=== PATIENT | female | born 1945 | race Caucasian/White ===

== ENCOUNTER 2018-05-12 06:42 | Observation (INO) | payer MEDICARE, OTHER ==
[2018-05-12] MEDS ORDERED: ACETAMINOPHEN 325 MG TABLET PO ONE (06:48)
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
[2018-05-12] MEDS ORDERED: ONDANSETRON HCL INJ/PF 4 MG/2 ML SDV IV ONE (07:25)
[2018-05-12] MEDS ORDERED: MORPHINE SULFATE 10 MG/ML INJ IV ONE (07:25)
[2018-05-12 08:09] LABS: ABSOLUTE BASOPHILS # (AUTO) 0.1 10^3/uL (0.0-0.2); ABSOLUTE EOSINOPHILS # (AUTO) 0.4 10^3/uL (0.0-0.6); ABSOLUTE LYMPHOCYTES (AUTO) 1.7 10^3/uL (0.5-4.7); ABSOLUTE MONOCYTES (AUTO) 0.6 10^3/uL (0.1-1.4); ABSOLUTE NEUT (AUTO) 7.1 10^3/uL (1.7-8.2); BASOPHILS % (AUTO) 0.9 % (0-2); EOSINOPHILS % (AUTO) 3.9 % (0-6); HEMATOCRIT 39.8 % (36.0-47.0); HEMOGLOBIN 13.7 g/dL (12.0-15.5); LYMPHOCYTES % (AUTO) 17.4 % (13-45); MEAN CORPUSCULAR HGB CONC 34.4 g/dL (32.0-36.0); MEAN CORPUSCULAR VOLUME 87 fl (80-97); MONOCYTES % (AUTO) 6.5 % (3-13); PLATELET COUNT 251 10^3/uL (150-450); RED BLOOD COUNT 4.56 10^6/uL (3.72-5.28); RED CELL DISTRIBUTION WIDTH 13.2 % (11.5-14.0); SEGMENTED NEUTROPHILS % (AUTO) 71.3 % (42-78); TOTAL CELLS COUNTED % (AUTO) 100 %; WHITE BLOOD COUNT 9.9 10^3/uL (4.0-10.5)
[2018-05-12] MEDS ORDERED: MORPHINE SULFATE 10 MG/ML INJ ONE (08:09)
--- NOTE | 2018-05-12 08:20 | RADIOLOGY REPORT (SQ) ---
EXAM DESCRIPTION: ANKLE LEFT COMPLETE COMPLETED DATE/TIME: 05/12/2018 7:26 am REASON FOR STUDY: injury COMPARISON: None. NUMBER OF VIEWS: Three views. TECHNIQUE: AP, lateral, and oblique radiographic images acquired of the left ankle. LIMITATIONS: None. FINDINGS: MINERALIZATION: Normal. BONES: Comminuted fractures of the distal tibia and fibula with disruption of the tibiotalar joint. JOINTS: No effusions. SOFT TISSUES: No soft tissue swelling. No foreign body. OTHER: No other significant finding. IMPRESSION: COMMINUTED FRACTURE DISLOCATION. TECHNICAL DOCUMENTATION: JOB ID: [id number] [employer]- All Rights Reserved Reading location - IP/workstation name: [email or web address]
[2018-05-12 08:24] LABS: ALANINE AMINOTRANSFERASE 21 U/L (9-52); ALBUMIN 4.3 g/dL (3.5-5.0); ALKALINE PHOSPHATASE 94 U/L (38-126); ANION GAP 8 (5-19); ASPARTATE AMINO TRANSFERASE 29 U/L (14-36); BILIRUBIN,DIRECT 0.2 mg/dL (0.0-0.4); BILIRUBIN,TOTAL 0.5 mg/dL (0.2-1.3); BLOOD UREA NITROGEN 20 mg/dL (7-20); CALCIUM 10.2 mg/dL (8.4-10.2); CARBON DIOXIDE 26 mmol/L (22-30); CHLORIDE 109 mmol/L (98-107); GLUCOSE 95 mg/dL (75-110); POTASSIUM 4.6 mmol/L (3.6-5.0); SODIUM 143.1 mmol/L (137-145); TOTAL PROTEIN 7.2 g/dL (6.3-8.2)
--- NOTE | 2018-05-12 08:58 | RADIOLOGY REPORT (SQ) ---
EXAM DESCRIPTION: ANKLE LEFT AP/LATERAL COMPLETED DATE/TIME: 05/12/2018 8:51 am REASON FOR STUDY: Post reduction trimalleolar fracture COMPARISON: 05/12/2018. NUMBER OF VIEWS: Two views. TECHNIQUE: AP and lateral radiographic images acquired of the left ankle. LIMITATIONS: None. FINDINGS: Improved fracture alignment following closed reduction. IMPRESSION: IMPROVED FRACTURE ALIGNMENT FOLLOWING CLOSED REDUCTION. TECHNICAL DOCUMENTATION: JOB ID: [id number] [employer]- All Rights Reserved Reading location - IP/workstation name: [email or web address]
[2018-05-12 09:46] LABS: AMORPHOUS SEDIMENT,URINE TRACE /HPF; APPEARANCE,URINE SLIGHTLY-CLOUDY; BILIRUBIN,URINE NEGATIVE (NEGATIVE); COLOR,URINE YELLOW; GLUCOSE, URINE NEGATIVE (NEGATIVE); KETONES,URINE NEGATIVE (NEGATIVE); LEUKOCYTE ESTERASE,URINE TRACE (NEGATIVE); NITRITE,URINE NEGATIVE (NEGATIVE); PROTEIN,URINE NEGATIVE (NEGATIVE); URINE SPECIFIC GRAVITY 1.013; UROBILINOGEN,URINE NEGATIVE mg/dL (<2.0)
--- NOTE | 2018-05-12 09:57 | RADIOLOGY REPORT (SQ) ---
EXAM DESCRIPTION: CHEST SINGLE VIEW COMPLETED DATE/TIME: 05/12/2018 9:37 am REASON FOR STUDY: Pre-op COMPARISON: None. EXAM PARAMETERS: NUMBER OF VIEWS: One view. TECHNIQUE: Single frontal radiographic view of the chest acquired. RADIATION DOSE: NA LIMITATIONS: None. FINDINGS: LUNGS AND PLEURA: No opacities, masses or pneumothorax. No pleural effusion. MEDIASTINUM AND HILAR STRUCTURES: No masses. Contour normal. HEART AND VASCULAR STRUCTURES: Heart normal in size. Normal vasculature. BONES: No acute findings. HARDWARE: None in the chest. OTHER: No other significant finding. IMPRESSION: NO ACUTE RADIOGRAPHIC FINDING IN THE CHEST. TECHNICAL DOCUMENTATION: JOB ID: [id number] [employer]- All Rights Reserved Reading location - IP/workstation name: [email or web address]
[2018-05-12] MEDS ORDERED: GLUCAGON,HUMAN RECOMB 1 MG INJ SUBCUT PRN (12:34)
[2018-05-12] MEDS ORDERED: DEXTROSE 50%-WATER 25 GM/50 ML DISP.SYRIN IV PRN ×2 (12:34)
[2018-05-12] MEDS ORDERED: DEXTROSE 40% GEL 15 GM TUBE PO PRN ×2 (12:34)
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
[2018-05-12] MEDS ORDERED: MORPHINE SULFATE 10 MG/ML INJ IV PRN (12:38)
[2018-05-12] MEDS ORDERED: ONDANSETRON HCL INJ/PF 4 MG/2 ML SDV IV PRN (12:38)
--- NOTE | 2018-05-12 14:33 | EKG REPORT ---
SEVERITY:- NORMAL ECG - SINUS RHYTHM : Confirmed by: Catherine Amezquita MD 12-May-2018 14:32:47
--- NOTE | 2018-05-12 18:03 | PDOC CONSULTATION ---
Consultation Consult Date: 05/12/18 Attending physician:: BRUCE JARA Consult reason:: HTN, HLD, HYPOTHYROIDISM MGMT History of Present Illness Admission Date/PCP: 05/12/18 09:56 Patient complains of: L ANKLE PAIN History of Present Illness: ANGELITO ORTIZ is a 72 year old female who fell while walking down stairs. Sustained a bimalleolar ankle fracture dislocation. Reduced in the ED by Dr. Mojica. Patient is admitted to Ortho, hospitalist is consulted for management of HTN, HLD and hypothyroidism. Patient states she is compliant with all of her medications. She follows up with her PCP regularly. Stress test and carotid duplex completed 1 year ago by value engineer after patient was complaining of diaphoresis and exhaustion following minimal exertion. Unclear about stress test results but patient stated she underwent cardiac catheterization in and results were normal. No further cardiac workup needed. Past Medical History Cardiac Medical History: Reports: Hyperlipidema, Hypertension Endocrine Medical History: Reports: Hypothyroidism Past Surgical History Past Surgical History: Reports: Appendectomy, Hysterectomy, Other - Right distal forearm ORIF Social History Information Source: Patient Lives with: Family Smoking Status: Never Smoker Frequency of Alcohol Use: None Hx Recreational Drug Use: No Drugs: None Hx Prescription Drug Abuse: No - Advance Directive Resuscitation Status: Full Code Family History Family History: Reviewed & Not Pertinent Parental Family History Reviewed: No Children Family History Reviewed: NA Sibling(s) Family History Reviewed.: NA Medication/Allergy Home Medications: Alendronate Sodium [Fosamax 70 mg Tablet] 70 mg PO TORRES@1000 05/12/18 Atorvastatin Calcium [Lipitor 20 mg Tablet] 20 mg PO QHS 05/12/18 Levothyroxine Sodium [Synthroid 0.112 mg Tablet] 0.112 mg PO Q6AM 05/12/18 Allergies/Adverse Reactions: No Known Allergies Allergy (Unverified 05/12/18 08:47) Review of Systems All systems: reviewed and no additional remarkable complaints except as stated Physical Exam Vital Signs: Temp Pulse Resp BP Pulse Ox 97.7 F 17 108/50 L 99 05/12/18 14:14 05/12/18 16:30 05/12/18 16:30 05/12/18 16:30 General appearance: PRESENT: no acute distress, well-developed, well-nourished Head exam: PRESENT: atraumatic, normocephalic Eye exam: PRESENT: conjunctiva pink, EOMI, PERRLA. ABSENT: scleral icterus Ear exam: PRESENT: normal external ear exam Mouth exam: PRESENT: moist, tongue midline Neck exam: ABSENT: carotid bruit, JVD, lymphadenopathy, thyromegaly Respiratory exam: PRESENT: clear to auscultation kristin. ABSENT: rales, rhonchi, wheezes Cardiovascular exam: PRESENT: RRR. ABSENT: diastolic murmur, rubs, systolic murmur Pulses: PRESENT: normal dorsalis pedis pul Vascular exam: PRESENT: normal capillary refill GI/Abdominal exam: PRESENT: normal bowel sounds, soft. ABSENT: distended, guarding, mass, organolmegaly, rebound, tenderness Rectal exam: PRESENT: deferred Extremities exam: ABSENT: calf tenderness, clubbing, full ROM - L ANKLE, pedal edema Musculoskeletal exam: PRESENT: ambulatory - WITH ASSISTANCE, deformity - LLE. ABSENT: full ROM - L ANKLE Neurological exam: PRESENT: alert, awake, oriented to person, oriented to place , oriented to time, oriented to situation Psychiatric exam: PRESENT: appropriate affect, normal mood Skin exam: PRESENT: dry, intact, warm. ABSENT: cyanosis, rash Results Impressions: Ankle X-Ray 05/12/18 08:34 IMPRESSION: IMPROVED FRACTURE ALIGNMENT FOLLOWING CLOSED REDUCTION. Chest X-Ray 05/12/18 09:14 IMPRESSION: NO ACUTE RADIOGRAPHIC FINDING IN THE CHEST. Status: Imported from PACS Assessment & Plan - Diagnosis (1) Displaced trimalleolar fracture of left ankle Qualifiers: Encounter type: initial encounter Fracture type: closed Qualified Code(s) : S82.852A - Displaced trimalleolar fracture of left lower leg, initial encounter for closed fracture Is this a current diagnosis for this admission?: Yes Plan: Plan per Ortho (2) HTN (hypertension) Qualifiers: Hypertension type: essential hypertension Qualified Code(s): I10 - Essential (primary) hypertension Is this a current diagnosis for this admission?: Yes Plan: History of HTN Continue home dose [place] (3) HLD (hyperlipidemia) Is this a current diagnosis for this admission?: Yes Plan: History of HLD Continue home dose lipitor check lipid panel in AM (4) Hypothyroid Is this a current diagnosis for this admission?: Yes Plan: History of hypothyroidism Continue home dose synthroid check TSH in AM (5) Osteopenia Is this a current diagnosis for this admission?: Yes Plan: History of osteopenia Continue home dose fosamax - Time Time Spent: 30 to 50 Minutes Medications reviewed and adjusted accordingly: Yes Anticipated discharge: Home Within: within 24 hours - Inpatient Certification Based on my medical assessment, after consideration of the patient's comorbidities, presenting symptoms, or acuity I expect that the services needed warrant INPATIENT care.: Yes I certify that my determination is in accordance with my understanding of Medicare's requirements for reasonable and necessary INPATIENT services [42 CFR 412.3e].: Yes Medical Necessity: Need for Surgery
[2018-05-12] MEDS: HYDROCODONE/ACETAMINOPHEN 5-325 MG TABLET PO PRN (20:20)
[2018-05-12] MEDS ORDERED: [UNRECOGNIZED DRUG - OTHER] IV ONE (23:42)
[2018-05-12] MEDS ORDERED: CEFAZOLIN IV ONE (23:42)
[2018-05-12] MEDS: CEFAZOLIN 2 GM/D5W RTU 2 GM/50 ML RTUPB IV SCH (23:53)
[2018-05-13] MEDS ORDERED: RINGERS SOLUTION,LACTATED 1,000 ML IV PRN ×2 (01:00→07:00)
[2018-05-13] MEDS: CEFAZOLIN 2 GM/D5W RTU 2 GM/50 ML RTUPB IV SCH ×3 (06:17→18:33)
[2018-05-13] MEDS ORDERED: CEFAZOLIN 2 GM/D5W RTU 2 GM/50 ML RTUPB IV PRN (07:00)
[2018-05-13] MEDS: HYDROCODONE/ACETAMINOPHEN 5-325 MG TABLET PO PRN (08:18)
[2018-05-13] MEDS ORDERED: ONDANSETRON HCL INJ/PF 4 MG/2 ML SDV IV PRN ×2 (13:00→15:45)
[2018-05-13 14:17] LABS: HEMATOCRIT 36.3 % (36.0-47.0); HEMOGLOBIN 12.3 g/dL (12.0-15.5); MEAN CORPUSCULAR HEMOGLOBIN 29.9 pg (27.0-33.4); MEAN CORPUSCULAR HGB CONC 33.9 g/dL (32.0-36.0); MEAN CORPUSCULAR VOLUME 88 fl (80-97); PLATELET COUNT 211 10^3/uL (150-450); RED BLOOD COUNT 4.13 10^6/uL (3.72-5.28); RED CELL DISTRIBUTION WIDTH 12.9 % (11.5-14.0); WHITE BLOOD COUNT 8.8 10^3/uL (4.0-10.5)
[2018-05-13 14:25] LABS: INTERNATIONAL RATION (INR) 0.99; PROTHROMBIN TIME 13.6 SEC (11.4-15.4)
[2018-05-13] MEDS ORDERED: MIDAZOLAM 2 MG/2 ML INJ ONE (14:25)
[2018-05-13] MEDS ORDERED: ONDANSETRON HCL INJ/PF 4 MG/2 ML SDV ONE (14:25)
[2018-05-13] MEDS ORDERED: FENTANYL CITRATE INJ/PF 100 MCG/2 ML AMPUL ONE (14:25)
[2018-05-13] MEDS ORDERED: LIDOCAINE 2% INJ-PF (20 MG/ML) 10 ML AMPUL ONE (14:25)
[2018-05-13] MEDS ORDERED: PROPOFOL INJ 200 MG/20 ML VIAL IV ONE (14:26)
[2018-05-13] MEDS ORDERED: BUPIVACAINE HCL/DEX-WATER/PF 15 MG/2 ML AMPULE ONE (14:27)
[2018-05-13 14:36] LABS: ALANINE AMINOTRANSFERASE 23 U/L (9-52); ALBUMIN 3.2 g/dL (3.5-5.0); ALKALINE PHOSPHATASE 81 U/L (38-126); ANION GAP 7 (5-19); ASPARTATE AMINO TRANSFERASE 19 U/L (14-36); BILIRUBIN,DIRECT 0.2 mg/dL (0.0-0.4); BILIRUBIN,TOTAL 0.5 mg/dL (0.2-1.3); BLOOD UREA NITROGEN 16 mg/dL (7-20); CALCIUM 8.8 mg/dL (8.4-10.2); CARBON DIOXIDE 26 mmol/L (22-30); CHLORIDE 107 mmol/L (98-107); CHOLESTEROL 136.53 mg/dL (0-200); GLUCOSE 86 mg/dL (75-110); POTASSIUM 4.3 mmol/L (3.6-5.0); SODIUM 139.6 mmol/L (137-145); TOTAL PROTEIN 5.6 g/dL (6.3-8.2); TRIGLYCERIDES 152 mg/dL (<150)
[2018-05-13 14:46] LABS: DIRECT LDL 72 mg/dL (<100)
[2018-05-13 14:48] LABS: VLDL CHOLESTEROL 30.4 mg/dL (10-31)
[2018-05-13] MEDS ORDERED: FENTANYL CITRATE INJ/PF 100 MCG/2 ML AMPUL IV PRN ×3 (15:45)
[2018-05-13] MEDS ORDERED: PROMETHAZINE HCL INJ 25 MG/1 ML VIAL IV PRN ×2 (15:45)
[2018-05-13] MEDS ORDERED: MEPERIDINE HCL/PF INJ 25 MG/1 ML DISP.SYRIN IV PRN (15:45)
[2018-05-13] MEDS ORDERED: MORPHINE SULFATE 10 MG/ML INJ IV PRN ×2 (15:45→21:19)
[2018-05-13] MEDS ORDERED: DIPHENHYDRAMINE HCL 50 MG/ML VIAL IV PRN (15:45)
--- NOTE | 2018-05-13 16:08 | Operative Report ---
Operative Report DATE OF SURGERY: 05/13/18 PREOPERATIVE DIAGNOSIS: Left bimalleolar ankle fracture OPERATION: Open reduction internal fixation left bimalleolar ankle fracture SURGEON: JACQUELINE SAVAGE ANESTHESIA: Spinal ESTIMATED BLOOD LOSS: 25 PROCEDURE: With the patient supine on the operating table left lower extremities prepped and draped in a sterile fashion. The limb was elevated for exsanguination tourniquet inflated 280 torr. A longitudinal incisions made over the distal lateral fibula and sharp dissection was carried incision down through the periosteum. The periosteum was elevated. The underlying fracture is visual visualized. Somewhat comminuted but is transverse. Is reapproximated using lobster claw clamps. A Pinch one thirds tubular stainless steel plate is applied and secured with 3 screws proximally and 4 screws distally. The fracture reduction hardware placement are assessed and felt to be acceptable. Attention was now turned to the medial malleolus. Longitudinal incisions made over the medial malleolus and sharp dissection was used carried incision through the periosteum. The periosteum was elevated. The fracture is identified. Its reduced anatomically using a dental pick. 2 pins for the Pinch 4.0 mm stainless steel cannulated screws were placed across the fracture and this is secured with 250 mm screws. The fracture reduction and the hardware placement again checked fluoroscopically and felt to be anatomic. This point the tourniquet is deflated. Hemostasis obtained with electrocautery. The wounds irrigated with bulb lavage. The closure is interrupted Vicryl followed by nylon. A sterile compressive dressing and posterior plaster splint were applied and patient's return to PACU in satisfactory condition.
[2018-05-13] MEDS ORDERED: DEXTROSE 40% GEL 15 GM TUBE X 2 PO PRN ×2 (16:19→21:16)
[2018-05-13] MEDS ORDERED: INSULIN LISPRO 100 UNIT/ML 3 ML VIAL SUBCUT PRN ×2 (16:19→21:16)
[2018-05-13] MEDS ORDERED: GLUCAGON,HUMAN RECOMB 1 MG INJ IM PRN ×2 (16:19→21:16)
[2018-05-13] MEDS ORDERED: DEXTROSE 50%-WATER SYRINGE 25 GM/50 ML DOSE IV PRN ×2 (16:19→21:16)
[2018-05-13] MEDS ORDERED: DEXTROSE 50%-WATER SYRINGE 12.5 GM/25 ML DOSE IV PRN ×2 (16:19→21:16)
[2018-05-13] MEDS ORDERED: DEXTROSE 40% GEL 15 GM TUBE PO PRN ×2 (16:19→21:16)
--- NOTE | 2018-05-13 16:49 | RADIOLOGY REPORT (SQ) ---
EXAM DESCRIPTION: ANKLE LEFT AP/LATERAL; NO CHG FLUORO COMPLETED DATE/TIME: 05/13/2018 4:23 pm REASON FOR STUDY: ORIF LT ANKLE D53.9 NUTRITIONAL ANEMIA, UNSPECIFIED E78.5 HYPERLIPIDEMIA, UNSPEC IFIED E03.8 OTHER SPECIFIED HYPOTHYROIDISM COMPARISON: None. FLUOROSCOPY TIME: 0.2 minutes Spot images saved to PACS. TECHNIQUE: Intra-operative images acquired during surgical procedure to evaluate progress. NUMBER OF IMAGES: 2 LIMITATIONS: None. FINDINGS: Fluoroscopy was provided for intraoperative procedure for the operative report for further discussion. IMPRESSION: IMAGE(S) OBTAINED DURING PROCEDURE. COMMENT: Quality ID [id number]: Final reports for procedures using fluoroscopy that document radiation exp osure indices, or exposure time and number of fluorographic images (if radiation exposure indices are not available) Please consult full operative report of the attending physician for description of the procedure. TECHNICAL DOCUMENTATION: JOB ID: [id number] [employer]- All Rights Reserved Reading location - IP/workstation name: [email or web address]
--- NOTE | 2018-05-13 16:49 | RADIOLOGY REPORT (SQ) ---
EXAM DESCRIPTION: ANKLE LEFT AP/LATERAL; NO CHG FLUORO COMPLETED DATE/TIME: 05/13/2018 4:23 pm REASON FOR STUDY: ORIF LT ANKLE D53.9 NUTRITIONAL ANEMIA, UNSPECIFIED E78.5 HYPERLIPIDEMIA, UNSPEC IFIED E03.8 OTHER SPECIFIED HYPOTHYROIDISM COMPARISON: None. FLUOROSCOPY TIME: 0.2 minutes Spot images saved to PACS. TECHNIQUE: Intra-operative images acquired during surgical procedure to evaluate progress. NUMBER OF IMAGES: 2 LIMITATIONS: None. FINDINGS: Fluoroscopy was provided for intraoperative procedure for the operative report for further discussion. IMPRESSION: IMAGE(S) OBTAINED DURING PROCEDURE. COMMENT: Quality ID [id number]: Final reports for procedures using fluoroscopy that document radiation exp osure indices, or exposure time and number of fluorographic images (if radiation exposure indices are not available) Please consult full operative report of the attending physician for description of the procedure. TECHNICAL DOCUMENTATION: JOB ID: [id number] [employer]- All Rights Reserved Reading location - IP/workstation name: [email or web address]
--- NOTE | 2018-05-13 17:13 | RADIOLOGY REPORT (SQ) ---
EXAM DESCRIPTION: FOOT RIGHT COMPLETE COMPLETED DATE/TIME: 05/13/2018 5:05 pm REASON FOR STUDY: R foot pain D53.9 NUTRITIONAL ANEMIA, UNSPECIFIED E78.5 HYPERLIPIDEMIA, UNSPECIF IED E03.8 OTHER SPECIFIED HYPOTHYROIDISM COMPARISON: None. NUMBER OF VIEWS: Three views. TECHNIQUE: AP, lateral and oblique radiographic images acquired of the right foot. LIMITATIONS: None. FINDINGS: MINERALIZATION: Normal. BONES: There is an oblique fracture of the 5th metatarsal. Large plantar calcaneal spur. JOINTS: No effusions. SOFT TISSUES: No soft tissue swelling. No foreign body. OTHER: No other significant finding. IMPRESSION: 5th metatarsal fracture. Calcaneal spur. TECHNICAL DOCUMENTATION: JOB ID: [id number] [employer]- All Rights Reserved Reading location - IP/workstation name: [email or web address]
[2018-05-13] MEDS: LEVOTHYROXINE SODIUM 0.112 MG TABLET PO SCH (18:34)
--- NOTE | 2018-05-13 18:37 | PDOC PROGRESS REPORT ---
Subjective Progress Note for:: 05/13/18 Subjective:: ANGELITO ORTIZ is a 72 year old female who fell while walking down stairs. Sustained a bimalleolar ankle fracture dislocation. Reduced in the ED by Dr. Mojica. Patient is admitted to Ortho, plan for surgery today to repair ankle fracture. Hospitalist is consulted for management of HTN, HLD and hypothyroidism. The patient was seen this morning on rounds. She is resting comfortably in bed on room air. Patient has no complaints at this time. Nursing staff has no complaints. Continue current pain regimen. Reason For Visit: LEFT ANKLE FRACTURE DISLOCATION Physical Exam Vital Signs: Temp Pulse Resp BP Pulse Ox 97.8 F 62 16 110/48 L 100 05/13/18 17:25 05/13/18 17:25 05/13/18 17:25 05/13/18 17:25 05/13/18 17:25 Intake & Output 05/12/18 05/13/18 05/14/18 06:59 06:59 06:59 Intake Total 200 1710 Output Total 160 Balance 200 1550 Weight 77.7 kg Results Laboratory Results: 05/13/18 13:55 05/13/18 13:55 05/13/18 05/13/18 05/13/18 13:55 13:55 13:55 WBC 8.8 RBC 4.13 Hgb 12.3 Hct 36.3 MCV 88 MCH 29.9 MCHC 33.9 RDW 12.9 Plt Count 211 Sodium 139.6 Potassium 4.3 Chloride 107 Carbon Dioxide 26 Anion Gap 7 BUN 16 Creatinine 0.78 Est GFR ( Amer) > 60 Est GFR (Non-Af Amer) > 60 Glucose 86 Calcium 8.8 Total Bilirubin 0.5 AST 19 ALT 23 Alkaline Phosphatase 81 Total Protein 5.6 L Albumin 3.2 L Triglycerides 152 H Cholesterol 136.53 LDL Cholesterol Direct 72 VLDL Cholesterol 30.4 HDL Cholesterol 36 L TSH 0.40 L Blood Type Antibody Screen 05/13/18 13:55 WBC RBC Hgb Hct MCV MCH MCHC RDW Plt Count Sodium Potassium Chloride Carbon Dioxide Anion Gap BUN Creatinine Est GFR ( Amer) Est GFR (Non-Af Amer) Glucose Calcium Total Bilirubin AST ALT Alkaline Phosphatase Total Protein Albumin Triglycerides Cholesterol LDL Cholesterol Direct VLDL Cholesterol HDL Cholesterol TSH Blood Type O POSITIVE Antibody Screen NEGATIVE Impressions: Chest X-Ray 05/12/18 09:14 IMPRESSION: NO ACUTE RADIOGRAPHIC FINDING IN THE CHEST. Ankle X-Ray 05/13/18 00:00 IMPRESSION: IMAGE(S) OBTAINED DURING PROCEDURE. Fluoroscopy 05/13/18 00:00 IMPRESSION: IMAGE(S) OBTAINED DURING PROCEDURE. Foot X-Ray 05/13/18 00:00 IMPRESSION: 5th metatarsal fracture. Calcaneal spur. Status: Imported from PACS Assessment & Plan - Diagnosis (1) Displaced trimalleolar fracture of left ankle Qualifiers: Encounter type: initial encounter Fracture type: closed Qualified Code(s) : S82.852A - Displaced trimalleolar fracture of left lower leg, initial encounter for closed fracture Is this a current diagnosis for this admission?: Yes Plan: Plan per Ortho Surgical repair of fracture scheduled for today (2) HTN (hypertension) Qualifiers: Hypertension type: essential hypertension Qualified Code(s): I10 - Essential (primary) hypertension Is this a current diagnosis for this admission?: Yes Plan: History of HTN Continue home dose [place] (3) HLD (hyperlipidemia) Is this a current diagnosis for this admission?: Yes Plan: History of HLD Continue home dose lipitor check lipid panel in AM (4) Hypothyroid Is this a current diagnosis for this admission?: Yes Plan: History of hypothyroidism Continue home dose synthroid TSH today was 0.4 - T3 and Free T4 pending Synthroid dosage may need adjustment (5) Osteopenia Is this a current diagnosis for this admission?: Yes Plan: History of osteopenia Continue home dose fosamax - Time Time Spent with patient: 15-24 minutes Medications reviewed and adjusted accordingly: Yes Anticipated discharge: Home - Inpatient Certification Based on my medical assessment, after consideration of the patient's comorbidities, presenting symptoms, or acuity I expect that the services needed warrant INPATIENT care.: Yes I certify that my determination is in accordance with my understanding of Medicare's requirements for reasonable and necessary INPATIENT services [42 CFR 412.3e].: Yes Medical Necessity: Risk of Complication if Not Cared For in Hospital - Plan Summary Plan Summary: SURGERY TODAY. WILL NEED ASSISTANCE WITH POST-DISCHARGE COORDINATION OF CARE AND RETURN HOME TO [place]
[2018-05-13 19:53] LABS: FREE T3 2.76 pg/mL (2.77-5.27); FREE T4 (FREE THYROXINE) 1.41 ng/dL (0.78-2.19)
[2018-05-13] MEDS ORDERED: ONDANSETRON 4 MG TAB.RAPDIS PO PRN (21:20)
[2018-05-13] MEDS: OXYCODONE HCL IR 5 MG TABLET PO PRN (22:00)
[2018-05-13] MEDS: ATORVASTATIN CALCIUM 20 MG TABLET PO SCH (22:00)
[2018-05-14] MEDS: CEFAZOLIN 2 GM/D5W RTU 2 GM/50 ML RTUPB IV SCH ×4 (01:04→17:20)
[2018-05-14 06:29] LABS: ABSOLUTE BASOPHILS # (AUTO) 0.1 10^3/uL (0.0-0.2); ABSOLUTE EOSINOPHILS # (AUTO) 0.3 10^3/uL (0.0-0.6); ABSOLUTE LYMPHOCYTES (AUTO) 1.4 10^3/uL (0.5-4.7); ABSOLUTE MONOCYTES (AUTO) 0.9 10^3/uL (0.1-1.4); ABSOLUTE NEUT (AUTO) 7.5 10^3/uL (1.7-8.2); BASOPHILS % (AUTO) 0.5 % (0-2); EOSINOPHILS % (AUTO) 2.9 % (0-6); HEMATOCRIT 34.1 % (36.0-47.0); HEMOGLOBIN 11.6 g/dL (12.0-15.5); LYMPHOCYTES % (AUTO) 13.8 % (13-45); MEAN CORPUSCULAR HEMOGLOBIN 30.1 pg (27.0-33.4); MEAN CORPUSCULAR HGB CONC 34.1 g/dL (32.0-36.0); MEAN CORPUSCULAR VOLUME 88 fl (80-97); PLATELET COUNT 186 10^3/uL (150-450); RED BLOOD COUNT 3.87 10^6/uL (3.72-5.28); RED CELL DISTRIBUTION WIDTH 12.7 % (11.5-14.0); SEGMENTED NEUTROPHILS % (AUTO) 73.8 % (42-78); TOTAL CELLS COUNTED % (AUTO) 100 %; WHITE BLOOD COUNT 10.2 10^3/uL (4.0-10.5)
--- NOTE | 2018-05-14 06:34 | PDOC PROGRESS REPORT ---
Subjective Progress Note for:: 05/14/18 Reason For Visit: LEFT ANKLE FRACTURE DISLOCATION 72-year-old white female postop day 1 status post open reduction internal fixation of a left bimalleolar ankle fracture. Patient with complaints of pain overnight. Physical Exam Vital Signs: Temp Pulse Resp BP Pulse Ox 37.1 C 78 14 115/55 L 98 05/13/18 23:48 05/13/18 23:48 05/13/18 23:48 05/13/18 23:48 05/13/18 23:48 Intake & Output 05/12/18 05/13/18 05/14/18 06:59 06:59 06:59 Intake Total 200 3010 Output Total 160 Balance 200 2850 Weight 77.7 kg 76.7 kg General appearance: PRESENT: no acute distress, mild distress Head exam: PRESENT: normocephalic Respiratory exam: PRESENT: unlabored Cardiovascular exam: PRESENT: RRR Vascular exam: PRESENT: normal capillary refill GI/Abdominal exam: PRESENT: soft Rectal exam: PRESENT: deferred Extremities exam: PRESENT: other - Left lower extremity dressing clean dry and intact. Distal neurovascular examination is intact. Neurological exam: PRESENT: alert, awake, oriented to person, oriented to place , oriented to time, oriented to situation. ABSENT: motor sensory deficit Psychiatric exam: PRESENT: appropriate affect, normal mood. ABSENT: homicidal ideation, suicidal ideation Skin exam: PRESENT: dry, intact, warm. ABSENT: cyanosis, rash Results Laboratory Results: 05/14/18 05:22 05/13/18 05/13/18 05/13/18 13:55 13:55 13:55 WBC 8.8 RBC 4.13 Hgb 12.3 Hct 36.3 MCV 88 MCH 29.9 MCHC 33.9 RDW 12.9 Plt Count 211 Seg Neutrophils % Lymphocytes % Monocytes % Eosinophils % Basophils % Absolute Neutrophils Absolute Lymphocytes Absolute Monocytes Absolute Eosinophils Absolute Basophils Sodium 139.6 Potassium 4.3 Chloride 107 Carbon Dioxide 26 Anion Gap 7 BUN 16 Creatinine 0.78 Est GFR ( Amer) > 60 Est GFR (Non-Af Amer) > 60 Glucose 86 Calcium 8.8 Total Bilirubin 0.5 AST 19 ALT 23 Alkaline Phosphatase 81 Total Protein 5.6 L Albumin 3.2 L Triglycerides 152 H Cholesterol 136.53 LDL Cholesterol Direct 72 VLDL Cholesterol 30.4 HDL Cholesterol 36 L TSH 0.40 L Free T4 Free T3 pg/mL Blood Type Antibody Screen 05/13/18 05/13/18 05/14/18 13:55 13:55 05:22 WBC 10.2 RBC 3.87 Hgb 11.6 L Hct 34.1 L MCV 88 MCH 30.1 MCHC 34.1 RDW 12.7 Plt Count 186 Seg Neutrophils % 73.8 Lymphocytes % 13.8 Monocytes % 9.0 Eosinophils % 2.9 Basophils % 0.5 Absolute Neutrophils 7.5 Absolute Lymphocytes 1.4 Absolute Monocytes 0.9 Absolute Eosinophils 0.3 Absolute Basophils 0.1 Sodium Potassium Chloride Carbon Dioxide Anion Gap BUN Creatinine Est GFR ( Amer) Est GFR (Non-Af Amer) Glucose Calcium Total Bilirubin AST ALT Alkaline Phosphatase Total Protein Albumin Triglycerides Cholesterol LDL Cholesterol Direct VLDL Cholesterol HDL Cholesterol TSH Free T4 1.41 Free T3 pg/mL 2.76 L Blood Type O POSITIVE Antibody Screen NEGATIVE Impressions: Chest X-Ray 05/12/18 09:14 IMPRESSION: NO ACUTE RADIOGRAPHIC FINDING IN THE CHEST. Ankle X-Ray 05/13/18 00:00 IMPRESSION: IMAGE(S) OBTAINED DURING PROCEDURE. Fluoroscopy 05/13/18 00:00 IMPRESSION: IMAGE(S) OBTAINED DURING PROCEDURE. Foot X-Ray 05/13/18 00:00 IMPRESSION: 5th metatarsal fracture. Calcaneal spur. Status: Imported from PACS Assessment & Plan - Diagnosis (1) Displaced trimalleolar fracture of left ankle Qualifiers: Encounter type: initial encounter Fracture type: closed Qualified Code(s) : S82.852A - Displaced trimalleolar fracture of left lower leg, initial encounter for closed fracture Is this a current diagnosis for this admission?: Yes Plan: Patient doing well postop. Plan to increase the frequency of her narcotic administration and transition from morphine to oxycodone. Mobilization with physical therapy and a touchdown weightbearing restriction left lower extremity. Patient is requesting discharge but will be in the area until Sunday. - Time Time Spent with patient: 15-24 minutes Anticipated discharge: Home Within: Other
[2018-05-14 06:43] LABS: ANION GAP 7 (5-19); BLOOD UREA NITROGEN 13 mg/dL (7-20); CALCIUM 8.7 mg/dL (8.4-10.2); CARBON DIOXIDE 25 mmol/L (22-30); CHLORIDE 107 mmol/L (98-107); GLUCOSE 96 mg/dL (75-110); POTASSIUM 4.4 mmol/L (3.6-5.0); SODIUM 138.9 mmol/L (137-145)
[2018-05-14] MEDS: LEVOTHYROXINE SODIUM 0.112 MG TABLET PO SCH (06:53)
[2018-05-14] MEDS: OXYCODONE HCL IR 5 MG TABLET PO PRN ×3 (07:02→20:45)
--- NOTE | 2018-05-14 15:02 | PDOC PROGRESS REPORT ---
Subjective Progress Note for:: 05/14/18 Subjective:: The patient is a 72-year-old female with a past medical history of hypothyroidism, hyperlipidemia and hypertension who was admitted on 05/12/18 for operative management of a left bimalleolar ankle fracture and dislocation. The patient was seen on morning rounds. She is found resting in bed comfortably on room air. She states that her pain is adequately controlled at present. She is hopeful to be discharged soon; patient travelled with family members from [place] for [employer] work. She denies fever, chills, chest pain, dyspnea, orthopnea, abdominal pain, nausea and vomiting. She has no other questions or concerns today. No concerns per nursing. Reason For Visit: LEFT ANKLE FRACTURE DISLOCATION Physical Exam Vital Signs: Temp Pulse Resp BP Pulse Ox 99.3 F 84 16 124/53 L 97 05/14/18 11:23 05/14/18 11:23 05/14/18 11:23 05/14/18 11:23 05/14/18 11:23 Intake & Output 05/13/18 05/14/18 05/15/18 06:59 06:59 06:59 Intake Total 200 3660 602 Output Total 160 400 Balance 200 3500 202 Weight 77.7 kg 76.7 kg General appearance: PRESENT: no acute distress, cooperative - Pleasant, well- developed, well-nourished - Overweight Head exam: PRESENT: atraumatic, normocephalic Eye exam: PRESENT: conjunctiva pink, EOMI, PERRLA. ABSENT: scleral icterus Ear exam: PRESENT: normal external ear exam Mouth exam: PRESENT: moist, tongue midline Neck exam: ABSENT: carotid bruit, JVD, lymphadenopathy, thyromegaly Respiratory exam: PRESENT: clear to auscultation kristin, symmetrical, unlabored. ABSENT: rales, rhonchi, wheezes Cardiovascular exam: PRESENT: RRR. ABSENT: diastolic murmur, rubs, systolic murmur Pulses: PRESENT: normal dorsalis pedis pul Vascular exam: PRESENT: normal capillary refill GI/Abdominal exam: PRESENT: normal bowel sounds, soft. ABSENT: distended, guarding, mass, organolmegaly, rebound, tenderness Rectal exam: PRESENT: deferred Extremities exam: PRESENT: tenderness - Left ankle. ABSENT: calf tenderness, clubbing, pedal edema Musculoskeletal exam: PRESENT: ambulatory - With front wheeled walker Neurological exam: PRESENT: alert, awake, oriented to person, oriented to place , oriented to time, oriented to situation, CN II-XII grossly intact. ABSENT: motor sensory deficit Psychiatric exam: PRESENT: appropriate affect, normal mood. ABSENT: homicidal ideation, suicidal ideation Skin exam: PRESENT: dry, intact, warm. ABSENT: cyanosis, rash Results Laboratory Results: 05/14/18 05:22 05/14/18 05:22 05/13/18 05/13/18 05/13/18 13:55 13:55 13:55 WBC RBC Hgb Hct MCV MCH MCHC RDW Plt Count Seg Neutrophils % Lymphocytes % Monocytes % Eosinophils % Basophils % Absolute Neutrophils Absolute Lymphocytes Absolute Monocytes Absolute Eosinophils Absolute Basophils Sodium 139.6 Potassium 4.3 Chloride 107 Carbon Dioxide 26 Anion Gap 7 BUN 16 Creatinine 0.78 Est GFR ( Amer) > 60 Est GFR (Non-Af Amer) > 60 Glucose 86 Calcium 8.8 Total Bilirubin 0.5 AST 19 ALT 23 Alkaline Phosphatase 81 Total Protein 5.6 L Albumin 3.2 L Triglycerides 152 H Cholesterol 136.53 LDL Cholesterol Direct 72 VLDL Cholesterol 30.4 HDL Cholesterol 36 L TSH 0.40 L Free T4 Free T3 pg/mL Blood Type O POSITIVE Antibody Screen NEGATIVE 05/13/18 05/14/18 05/14/18 13:55 05:22 05:22 WBC 10.2 RBC 3.87 Hgb 11.6 L Hct 34.1 L MCV 88 MCH 30.1 MCHC 34.1 RDW 12.7 Plt Count 186 Seg Neutrophils % 73.8 Lymphocytes % 13.8 Monocytes % 9.0 Eosinophils % 2.9 Basophils % 0.5 Absolute Neutrophils 7.5 Absolute Lymphocytes 1.4 Absolute Monocytes 0.9 Absolute Eosinophils 0.3 Absolute Basophils 0.1 Sodium 138.9 Potassium 4.4 Chloride 107 Carbon Dioxide 25 Anion Gap 7 BUN 13 Creatinine 0.76 Est GFR ( Amer) > 60 Est GFR (Non-Af Amer) > 60 Glucose 96 Calcium 8.7 Total Bilirubin AST ALT Alkaline Phosphatase Total Protein Albumin Triglycerides Cholesterol LDL Cholesterol Direct VLDL Cholesterol HDL Cholesterol TSH Free T4 1.41 Free T3 pg/mL 2.76 L Blood Type Antibody Screen Impressions: Chest X-Ray 05/12/18 09:14 IMPRESSION: NO ACUTE RADIOGRAPHIC FINDING IN THE CHEST. Ankle X-Ray 05/13/18 00:00 IMPRESSION: IMAGE(S) OBTAINED DURING PROCEDURE. Fluoroscopy 05/13/18 00:00 IMPRESSION: IMAGE(S) OBTAINED DURING PROCEDURE. Foot X-Ray 05/13/18 00:00 IMPRESSION: 5th metatarsal fracture. Calcaneal spur. Assessment & Plan - Diagnosis (1) Displaced trimalleolar fracture of left ankle Qualifiers: Encounter type: initial encounter Fracture type: closed Qualified Code(s) : S82.852A - Displaced trimalleolar fracture of left lower leg, initial encounter for closed fracture Is this a current diagnosis for this admission?: Yes Plan: Now status post ORIF by Dr. Mayo on 05/13/18. Primary plan per Orthopedics. Antibiotics and analgesics per Ortho's discretion. Physical therapy has evaluated the patient; she is ambulatory 15 feet with a front-wheeled walker; recommending continued physical therapy upon discharge. Discharge planning has been consulted; request their assistance in obtaining a front wheeled walker for the patient at discharge. She will need to contact her primary care provider/orthopedist upon returning home to arrange for follow- up and continued physical therapy. (2) HLD (hyperlipidemia) Is this a current diagnosis for this admission?: Yes Plan: Lipid panel is reviewed; HDL noted to be slightly low at 36, triglycerides 152. Dietary discretion is advised; placed on a low-fat diet. Continue home dose Lipitor. (3) HTN (hypertension) Qualifiers: Hypertension type: essential hypertension Qualified Code(s): I10 - Essential (primary) hypertension Is this a current diagnosis for this admission?: Yes Plan: Pt endorses a history of hypertension; normotensive at present. No indication for antihypertensives at this time. (4) Hypothyroid Is this a current diagnosis for this admission?: Yes Plan: Thyroid panel reviewed as acceptable. Continue home dose levothyroxine. (5) Osteopenia Is this a current diagnosis for this admission?: Yes Plan: Patient endorses a history of osteopenia. We will continue her home dose Fosamax. - Time Time Spent with patient: 15-24 minutes Anticipated discharge: Home Within: Other - Per orthopedics discretion. - Plan Summary Plan Summary: The hospitalist team was consulted for medical clearance; patient is now postop day 1 ORIF of left bimalleolar ankle fracture repair. Hospital course, labs, vital signs reviewed; spoke with patient, nursing, discharge planning today. No new concerns raised, likely to be discharged within the next 24 hours. We will sign off; please re-consult as necessary.
[2018-05-14] MEDS: ATORVASTATIN CALCIUM 20 MG TABLET PO SCH (23:14)
[2018-05-15] MEDS: CEFAZOLIN 2 GM/D5W RTU 2 GM/50 ML RTUPB IV SCH ×3 (00:58→11:29)
[2018-05-15] MEDS: LEVOTHYROXINE SODIUM 0.112 MG TABLET PO SCH (06:15)
[2018-05-15] MEDS: OXYCODONE HCL IR 5 MG TABLET PO PRN ×2 (11:29→17:48)
[2018-05-15 16:46] VITALS: BP 106/46
[2018-05-19] MEDS ORDERED: (PENDING PHARMACY ID) (Alendronate Sodium [Fosamax 70 Mg Tablet] 70 MG) PO SCH (10:00)
== END 2018-05-15 18:07 | disposition home or self-care (01) ==
LOC: ER 06:42 → INTOOBSV 09:56 → EH 09:56 → 4N 19:45
PROVIDERS: ADMIT Orthopaedic Surgery; ATTEND Orthopaedic Surgery
PROC: 0QSKXZZ Reposition Left Fibula, External Approach (ICD-10-PCS; 2018-05-12)
PROC: 0QSHXZZ Reposition Left Tibia, External Approach (ICD-10-PCS; 2018-05-12)
PROC: 0QSH04Z Reposition Left Tibia with Internal Fixation Device, Open Approach (ICD-10-PCS; 2018-05-13)
PROC: 0QSK04Z Reposition Left Fibula with Internal Fixation Device, Open Approach (ICD-10-PCS; principal; 2018-05-13 15:15)
DX: S82.842A Displaced bimalleolar fracture of left lower leg, initial encounter for closed fracture (principal); W10.8XXA Fall (on) (from) other stairs and steps, initial encounter; X50.1XXA Overexertion from prolonged static or awkward postures, initial encounter; I10 Essential (primary) hypertension; E78.5 Hyperlipidemia, unspecified; E03.9 Hypothyroidism, unspecified; M85.80 Other specified disorders of bone density and structure, unspecified site; E66.3 Overweight; Z68.30 Body mass index [BMI] 30.0-30.9, adult; Z79.899 Other long term (current) drug therapy; Z79.83 Long term (current) use of bisphosphonates; Z90.49 Acquired absence of other specified parts of digestive tract
CPT/HCPCS: 01480; 36415; 71045; 80048; 80053; 80061; 81001; 82962; 84439; 84443; 84481; 85025; 85027; 85610; 86850; 86900; 86901; 93005; 93010; 94799; 96374; 96375; 99285; C1713; C1769; G0378; G8978-GP; G8979-GP; J0690; J2250; J2270; J2405; J2704; J3010; J3490